=== PATIENT | male | born 1995 | race Caucasian/White ===

== ENCOUNTER 2020-07-26 19:14 | Emergency (ER) | payer SELFPAY ==
--- OUTSIDE RECORDS SUMMARY | 2020-07-26 19:17 | XMS REPORT | Continuity of Care Document ---
:1995 Author Organization [facility] Address [address] [place] [id number] Care Team Providers Name Role Phone Lewis TRISTAN Primary Care Physician Allergies, Adverse Reactions, Alerts No known allergies. Medications No known medications. Problems No problem information available. Procedures No procedure information available. Relevant Diagnostic Tests and/or Laboratory Data No known relevant diagnostic tests and/or laboratory data. Health Concerns Health Concerns may be documented in an alternate section. Chief Complaint and Reason for Visit Chief Complaint Trauma Encounters Encounter Location(s) Arrival/Admit Date Discharge/Depart Date Provider(s) Departed [place] May 15, 2020 May 15, 2020 SAPNA LAFLEUR Emergency Room [facility] 9:58pm 10:06pm Ctr Assessments No Assessments Information Available Functional Status No Functional Status information available Goals Goals may be documented in an alternate section. Immunizations No Immunization Information Available Mental Status No Mental Status Information Available Medical Equipment No Medical Equipment Information available Insurance Providers Guarantor Ricardo Zeng Sr Address [address] [place] [address] Contact Info. Home Phone: CELL Payer Policy Id Coverage Id Subscriber's Subscriber Id Effective E xpiration Name Date Date Self Pay Vaughn Beal Plan of Treatment Future Tests Future scheduled test information is unavailable Pending Tests Pending diagnostic test information is unavailable Future Visits Future appointment information is unavailable Referrals to Other Providers Reason for Referral Start Provider Provider Contact Provider Address Referral Date Information ORALIA TRISTAN Work Phone: [address] [place] [phone] Future Procedures Future procedure information is unavailable Future Medications Future medication information is unavailable Patient Instructions Patient instructions are unavailable Social History Smoking Status Status Date of Observation Smokes tobacco daily (finding) January 15, 2019 11:00am Assigned Sex Male Vital Signs Vital Reading Result Collection Date/Time
[2020-07-26] MEDS ORDERED: BUPIVACAINE 0.5% PF 10 ML VIAL ONE (20:35)
[2020-07-26] MEDS ORDERED: LIDOCAINE 1% MPF 5 ML VIAL ONE (20:35)
--- NOTE | 2020-07-26 20:47 | RAD REPORT ---
EXAM DESCRIPTION: RAD - Hand Right 3 View - 07/26/2020 8:06 pm CLINICAL HISTORY: Pain;Swelling COMPARISON: None FINDINGS: No fracture is identified. There is no dislocation or periosteal reaction noted. No air o r foreign body in the soft tissues. IMPRESSION: No bone or joint abnormality. No air or foreign body in the soft tissues.
[2020-07-26] MEDS ORDERED: SMZ./TMP. 800/160 MG TABLET ONE (20:56)
[2020-07-26] MEDS ORDERED: TETANUS & DIPHTHERIA TOX,ADULT 0.5 ML VIAL ONE (20:57)
[2020-07-26] MEDS ORDERED: HYDROCODONE/APAP 5/325 MG TAB ONE (20:57)
--- NOTE | 2020-07-26 21:06 | ER ---
Nurse's Notes [facility] Name: Vaughn Beal Age: 25 yrs Sex: Male : 1995 Arrival Date: 07/26/2020 Time: 19:23 Bed 7 Private MD: Diagnosis: Felon to right thumb Presentation: 07/26 19:28 Chief complaint: Patient states: pain and swelling on R thumb x 3 days. Denies injury. ca1 Coronavirus screen: Client denies travel out of the [place] in the last 14 days. At this time, the client does not indicate any symptoms associated with coronavirus-19. Ebola Screen: Patient negative for fever greater than or equal to 101.5 degrees Fahrenheit, and additional compatible Ebola Virus Disease symptoms Patient denies exposure to infectious person. Patient denies travel to an Ebola-affected area in the 21 days before illness onset. No symptoms or risks identified at this time. Initial Sepsis Screen: Does the patient meet any 2 criteria? No. Patient's initial sepsis screen is negative. Does the patient have a suspected source of infection? No. Patient's initial sepsis screen is negative. Risk Assessment: Do you want to hurt yourself or someone else? Patient reports no desire to harm self or others. Onset of symptoms was July 26, 2020. 19:28 Method Of Arrival: Ambulatory ca1 19:28 Acuity: CARLENE 4 ca1 Historical: - Allergies: 19:31 No Known Allergies; ca1 - Home Meds: 19:31 None [Active]; ca1 - PMHx: 19:31 None; ca1 - PSHx: 19:31 Femur Surgery; ca1 - Immunization history:: Adult Immunizations not up to date, Flu vaccine is not up to date. - Social history:: Smoking status: Patient reports the use of cigarette tobacco products, smokes two packs cigarettes per day. Screenin:55 Abuse screen: Denies threats or abuse. Nutritional screening: No deficits noted. ea Tuberculosis screening: No symptoms or risk factors identified. Fall Risk None identified. Assessment: 19:54 General: Appears in no apparent distress. Behavior is appropriate for age. Pain: ea Complains of pain in palmar aspect of distal phalanx of right thumb. Neuro: Level of Consciousness is awake, alert, obeys commands, Oriented to person, place, time, situation. Cardiovascular: Patient's skin is warm and dry. Respiratory: Airway is patent Respiratory effort is even, unlabored, Respiratory pattern is regular, symmetrical. Derm: Skin is dry, Skin is normal, Skin temperature is warm. Musculoskeletal: Circulation, motion, and sensation intact. Swelling present in palmar aspect of distal phalanx of right thumb. Vital Signs: 19:28 BP 135 / 96; Pulse 91; Resp 16 S; Temp 97.0(TE); Pulse Ox 97% on R/A; Weight 81.65 kg ca1 (R); Height 5 ft. 5 in. (165.10 cm) (R); Pain 8/10; 21:15 BP 122 / 78; Pulse 80; Resp 18; Temp 98; Pulse Ox 100% on R/A; mg2 19:28 Body Mass Index 29.95 (81.65 kg, 165.10 cm) ca1 ED Course: 19:23 Patient arrived in ED. am2 19:27 Yesy Alas FNP-C is PHCP. snw 19:27 Kun Rojas MD is Attending Physician. snw 19:30 Triage completed. ca1 19:31 Arm band placed on right wrist. ca1 19:53 Nadja Herman, DILCIA is Primary Nurse. ea 19:54 Yesy Alas FNP-C is PHCP. snw 19:54 Kun Rojas MD is Attending Physician. snw 19:55 Patient has correct armband on for positive identification. Bed in low position. Call ea light in reach. 20:04 Hand Right 3 View XRAY In Process Unspecified. EDMS 20:27 Patient did not have IV access during this emergency room visit. mg2 21:05 Jimmie Paulino MD is Referral Physician. snw 21:08 Assist provider with I \T\ D: of an abscess on right big thgumb Set up I\T\D tray. mg 2 Performed by Yesy ALEX Wound packed. 4X4s, Dressing with Neosporin and 4X4s, Patient tolerated well. Administered Medications: 20:33 Drug: Marcaine (0.5 %) 1 vials {Note: administered by the provider.} Volume: 10 ml; mg2 Route: Infiltration; 20:34 Drug: Lidocaine (1 %) 5 mg {Note: administered by the provider.} Route: Infiltration; mg2 21:04 Drug: Tetanus-Diphtheria Toxoid Adult 0.5 ml {Licensed Practical Nurse Clinic Nurse: [employer]. Exp: ea 11/28/2021. Lot #: [id number]. } Route: IM; Site: right deltoid; 21:07 Follow up: Response: No adverse reaction; Medication administered at discharge. mg2 21:04 Drug: [place] 5 mg-325 mg 1 tabs Route: PO; ea 21:07 Follow up: Response: No adverse reaction; Medication administered at discharge. mg2 21:04 Drug: Bactrim (160 mg-800 mg (DS) 1 tablet Route: PO; ea 21:07 Follow up: Response: No adverse reaction; Medication administered at discharge. mg2 Outcome: 21:05 Discharge ordered by MD. snw 21:14 Condition: stable ea 21:15 Discharged to home ambulatory. mg2 21:15 Discharge instructions given to patient, Instructed on discharge instructions, follow up and referral plans. medication usage, Demonstrated understanding of instructions, follow-up care, medications, Prescriptions given X 2. 21:15 Patient left the ED. mg2 Signatures: Dispatcher [employer] EDMS Yesy Alas, RD-C CHARGE HAND-CsnErika Scherer Elena, RN Jayson Carrizales ea, RN RN mg2 Silvia Ernandez RN RN ca1
--- NOTE | 2020-07-26 21:07 | EDPHYS ---
Physician Documentation [facility] Name: Vaughn Beal Age: 25 yrs Sex: Male : 1995 Arrival Date: 07/26/2020 Time: 19:23 Bed 7 Private MD: ED Physician Kun Rojas HPI: 07/26 20:39 This 25 yrs old Male presents to ER via Ambulatory with complaints of right snw thumb swelling. 20:39 The patient or guardian reports pain, swelling. The complaints affect the right thumb. snw Context: resulted from an unknown cause. Onset: The symptoms/episode began/occurred suddenly, 4 day(s) ago, and became persistent. Associated signs and symptoms: The patient has no apparent associated signs or symptoms. The patient has experienced a previous episode. The patient has not recently seen a physician. Historical: - Allergies: 19:31 No Known Allergies; ca1 - Home Meds: 19:31 None [Active]; ca1 - PMHx: 19:31 None; ca1 - PSHx: 19:31 Femur Surgery; ca1 - Immunization history:: Adult Immunizations not up to date, Flu vaccine is not up to date. - Social history:: Smoking status: Patient reports the use of cigarette tobacco products, smokes two packs cigarettes per day. ROS: 20:37 Constitutional: Negative for fever, chills, and weight loss, Eyes: Negative for injury, snw pain, redness, and discharge, ENT: Negative for injury, pain, and discharge, Neck: Negative for injury, pain, and swelling, Cardiovascular: Negative for chest pain, palpitations, and edema, Respiratory: Negative for shortness of breath, cough, wheezing, and pleuritic chest pain, Abdomen/GI: Negative for abdominal pain, nausea, vomiting, diarrhea, and constipation, Back: Negative for injury and pain, : Negative for injury, bleeding, discharge, and swelling, Skin: Negative for injury, rash, and discoloration, Neuro: Negative for headache, weakness, numbness, tingling, and seizure, Psych: Negative for depression, anxiety, suicide ideation, homicidal ideation, and hallucinations. 20:37 MS/extremity: Positive for felon to distal right thumb. Exam: 20:37 Constitutional: This is a well developed, well nourished patient who is awake, alert, snw and in no acute distress. Head/Face: Normocephalic, atraumatic. Eyes: Pupils equal round and reactive to light, extra-ocular motions intact. Lids and lashes normal. Conjunctiva and sclera are non-icteric and not injected. Cornea within normal limits. Periorbital areas with no swelling, redness, or edema. ENT: Nares patent. No nasal discharge, no septal abnormalities noted. Tympanic membranes are normal and external auditory canals are clear. Oropharynx with no redness, swelling, or masses, exudates, or evidence of obstruction, uvula midline. Mucous membranes moist. Neck: Trachea midline, no thyromegaly or masses palpated, and no cervical lymphadenopathy. Supple, full range of motion without nuchal rigidity, or vertebral point tenderness. No Meningismus. Chest/axilla: Normal chest wall appearance and motion. Nontender with no deformity. No lesions are appreciated. Cardiovascular: Regular rate and rhythm with a normal S1 and S2. No gallops, murmurs, or rubs. Normal PMI, no JVD. No pulse deficits. Respiratory: Lungs have equal breath sounds bilaterally, clear to auscultation and percussion. No rales, rhonchi or wheezes noted. No increased work of breathing, no retractions or nasal flaring. Abdomen/GI: Soft, non-tender, with normal bowel sounds. No distension or tympany. No guarding or rebound. No evidence of tenderness throughout. Back: No spinal tenderness. No costovertebral tenderness. Full range of motion. Skin: Warm, dry with normal turgor. Normal color with no rashes, no lesions, and no evidence of cellulitis. Neuro: Awake and alert, GCS 15, oriented to person, place, time, and situation. Cranial nerves II-XII grossly intact. Motor strength 5/5 in all extremities. Sensory grossly intact. Cerebellar exam normal. Normal gait. Psych: Awake, alert, with orientation to person, place and time. Behavior, mood, and affect are within normal limits. 20:37 Musculoskeletal/extremity: Extremities: grossly normal except: swelling, tenderness, fluctuance to pad of right thumb, Circulation is intact in all extremities. Sensation intact. Vital Signs: 19:28 BP 135 / 96; Pulse 91; Resp 16 S; Temp 97.0(TE); Pulse Ox 97% on R/A; Weight 81.65 kg ca1 (R); Height 5 ft. 5 in. (165.10 cm) (R); Pain 8/10; 21:15 BP 122 / 78; Pulse 80; Resp 18; Temp 98; Pulse Ox 100% on R/A; mg2 19:28 Body Mass Index 29.95 (81.65 kg, 165.10 cm) ca1 Procedures: 20:36 Nerve block: (digital) of right thumb Medication: Lidocaine 1% without epinephrine snw Marcaine 0.5%, Amount: 7 mls were injected, Effect: the patient has resolution of the pain, the patient's symptoms are improved, moderately, Set up for procedure. Performed by Yesy ALEX Patient tolerated well. MDM: 19:58 Patient medically screened. snw 21:06 Data reviewed: vital signs, nurses notes. Data interpreted: Pulse oximetry: on room air snw is 97 %. Interpretation: normal. Counseling: I had a detailed discussion with the patient and/or guardian regarding: the historical points, exam findings, and any diagnostic results supporting the discharge/admit diagnosis, the presence of at least one elevated blood pressure reading (>120/80) during this emergency department visit, the need for outpatient follow up, to return to the emergency department if symptoms worsen or persist or if there are any questions or concerns that arise at home, smoking cessation. Special discussion: I have referred the patient to see his PCP for further evaluation of high blood pressure. Based on the history and exam findings, there is no indication for further emergent testing or inpatient evaluation. I discussed with the patient/guardian the need to see the hand specialist for further evaluation of the symptoms. I discussed with the patient/guardian the need to see the primary care provider for further evaluation of the symptoms. 07/26 19:27 Order name: Hand Right 3 View XRAY; Complete Time: 21:05 snw 07/26 21:05 Order name: Wound dressing; Complete Time: 21:07 snw Administered Medications: 20:33 Drug: Marcaine (0.5 %) 1 vials {Note: administered by the provider.} Volume: 10 ml; mg2 Route: Infiltration; 20:34 Drug: Lidocaine (1 %) 5 mg {Note: administered by the provider.} Route: Infiltration; mg2 21:04 Drug: Tetanus-Diphtheria Toxoid Adult 0.5 ml {Co Founder And Chairman: [employer]. Exp: ea 11/28/2021. Lot #: [id number]. } Route: IM; Site: right deltoid; 21:07 Follow up: Response: No adverse reaction; Medication administered at discharge. mg2 21:04 Drug: [place] 5 mg-325 mg 1 tabs Route: PO; ea 21:07 Follow up: Response: No adverse reaction; Medication administered at discharge. mg2 21:04 Drug: Bactrim (160 mg-800 mg (DS) 1 tablet Route: PO; ea 21:07 Follow up: Response: No adverse reaction; Medication administered at discharge. mg2 Disposition: 23:33 Co-signature as Attending Physician, Kun Rojas MD. pkl Disposition: 07/26/20 21:05 Discharged to Home. Impression: Felon to right thumb. - Condition is Stable. - Discharge Instructions: VIS, Tetanus, Diphtheria (Td) - CDC, Felon. - Prescriptions for Mobic 7.5 mg Oral Tablet - take 1 tablet by ORAL route once daily take with food; 20 tablet. Doxycycline Hyclate 100 mg Oral Tablet - take 1 tablet by ORAL route every 12 hours; 14 tablet. - Work release form, Medication Reconciliation Form, Thank You Letter, Antibiotic Education, Prescription Opioid Use form. - Follow up: Emergency Department; When: As needed; Reason: Worsening of condition. Follow up: Jimmie Paulino; When: 2 - 3 days; Reason: Recheck today's complaints, Continuance of care. Signatures: Dispatcher [employer] EDMS Kun Rojas MD MD pkl Waters, Shelly, RAW STOCK DYEING MACHINE TENDER-C RAW STOCK DYEING MACHINE TENDER-Madelainew Nadja Herman RN RN ea Gardose, Michele, RN RN mg2 Silvia Ernandez RN RN ca1 Corrections: (The following items were deleted from the chart) 21:15 21:05 07/26/2020 21:05 Discharged to Home. Impression: Felon to right thumb. Condition mg2 is Stable. Discharge Instructions: Felon, VIS, Tetanus, Diphtheria (Td) - CDC. Prescriptions for Mobic 7.5 mg Oral Tablet - take 1 tablet by ORAL route once daily take with food; 20 tablet. and Forms are Work release form, Medication Reconciliation Form, Thank You Letter, Antibiotic Education, Prescription Opioid Use. Follow up: Emergency Department; When: As needed; Reason: Worsening of condition. Follow up: Jimmie Paulino; When: 2 - 3 days; Reason: Recheck today's complaints, Continuance of care. snw
[2020-07-27 05:12] VITALS: BP 122/78; TEMP 98; O2SAT 100
== END 2020-07-26 21:15 | disposition home or self-care (01) ==
LOC: ER 19:14
PROC: 0J9J0ZZ Drainage of Right Hand Subcutaneous Tissue and Fascia, Open Approach (ICD-10-PCS; principal; 2020-07-26)
DX: L03.011 Cellulitis of right finger (principal); F17.210 Nicotine dependence, cigarettes, uncomplicated
CPT/HCPCS: 64450; 90471; 90714; 99284

== ENCOUNTER 2023-04-13 09:41 | Inpatient (IN) | payer SELFPAY ==
--- OUTSIDE RECORDS SUMMARY | 2023-04-13 09:43 | XMS REPORT | Continuity of Care Document ---
:1995 Author Organization [facility] Address [address] [place] [address] [address] [place] [address] Care Team Providers Name Role Phone CHICA MIX Attending Clinician Unavailable ANNA Attending Clinician Unavailable MATT Attending Clinician Unavailable SAPNA LOUIS Attending Clinician Unavailable GUDELIA BOLANOS Attending Clinician Unavailable BERNY HOLDEN Attending Clinician Unavailable KAVYA LAURA Attending Clinician Unavailable ANNA Admitting Clinician Unavailable MATT Admitting Clinician Unavailable Problems This patient has no known problems. Allergies, Adverse Reactions, Alerts This patient has no known allergies or adverse reactions. Medications This patient has no known medications. Procedures This patient has no known procedures. Encounters Start End Encounter Admission Attending Care Care Encounter Source Date/Time Date/Time Type Type Clinicians Facility Department ID 2023-03-22 2023-03-22 Emergency ER SKYLER MIX [facility] [id number] [place] 09:27:00 11:10:00 CHICA [id number] [facility] 2022-04-20 2022-04-20 Outpatient BELLA M[facility]RISON [facility] [id number] [place] 00:00:00 00:00:00 [facility] 2022-03-31 Outpatient JUAN CARLOS_NICKO MORRISON [facility] [id number] [place] 12:43:00 12:43:00 _ANN [facility]15 [facility] 2020-05-15 2020-05-15 Emergency ER HERIBERTO, [facility] [id number] [place] 21:58:00 22:06:00 SAPNA -[id number] [facility] 2019-01-15 2019-01-15 Emergency ER LUIS MIGUEL, [facility] [id number] [place] 10:52:00 12:41:00 GUDELIA -[id number] [facility] 2017-03-03 2017-03-03 Emergency ER ADINA, [facility] [id number] [place] 03:43:00 07:39:00 BERNY -[id number] [facility] 2014-11-25 2014-11-25 Emergency ER VALENTÍN, [facility] [id number] [place] 20:47:00 21:40:00 KAVYA -[id number] [facility] Results This patient has no known results.
[2023-04-13] MEDS ORDERED: ACETAMINOPHEN 325 MG TABLET ONE (10:19)
--- NOTE | 2023-04-13 10:25 | RAD REPORT ---
EXAM DESCRIPTION: RAD - Chest Single View - 04/13/2023 10:19 am CLINICAL HISTORY: CHEST PAIN COMPARISON: No comparisons FINDINGS: Lines: None. Lungs: No evidence of edema or pneumonia. Pleural: No significant pleural effusions or pneumothorax. Cardiac: The heart size is within normal limits. Mediastinum: Within normal limits. Bones: No acute fractures. Other: None IMPRESSION: No acute cardiopulmonary disease.
[2023-04-13 10:39] LABS: Potassium 4.2 mEq/L (3.5-5.1)
[2023-04-13 10:41] LABS: Troponin High Sensitivity 470.3 pg/mL (<58.9)
[2023-04-13 11:17] LABS: Absolute Lymphocytes (CBC) 1.1 K/uL (0.7-4.9); Hematocrit 45.9 % (39.6-49.0); Lymphocytes % 12.8 % (15.3-44.8); MCV 88.9 fL (80-100); MPV 8.7 fL (7.6-11.3); RBC Red Blood Cell Count 5.16 M/uL (4.33-5.43)
[2023-04-13 11:26] LABS: Barbiturates NEGATIVE (NEGATIVE); Benzodiazepines NEGATIVE (NEGATIVE); Cocaine NEGATIVE (NEGATIVE); METHAMPHETAM NEGATIVE (NEGATIVE); Methadone NEGATIVE (NEGATIVE); Opiates NEGATIVE (NEGATIVE); Phencyclidine NEGATIVE (NEGATIVE); THC Cannibis NEGATIVE (NEGATIVE)
--- NOTE | 2023-04-13 12:21 | RAD REPORT ---
EXAM DESCRIPTION: CT - Chest For Pe Angio - 04/13/2023 12:14 pm CLINICAL HISTORY: CHEST PAIN COMPARISON: No comparisons TECHNIQUE: Dynamically enhanced axial 3 mm thick images of the chest were obtained during administra tion of <100> mL Isovue 370 IV contrast. Coronal and oblique reconstruction images were generated and reviewed. Exam utilizes a protocol for optimal evaluation of pulmonary arterial tree. Maximum intensity projections 3D imaging was utilized All CT scans are performed using dose optimization technique as appropriate and may include automated exposure control or mA/KV adjustment according to patient size. FINDINGS: Chest Wall: No suspicious thyroid nodules or pathologic lymphadenopathy. Lungs: Mosaic lung attenuation. No edema or consolidation. Pleura: No significant effusions or pneumothorax. Mediastinum/antonio: No pathologic lymphadenopathy. Pulmonary arteries/Aorta: No filling defect identified. No aortic aneurysm. Heart: No significant pericardial effusion. Normal heart size. Upper abdomen: No acute abnormality. Bones: No acute abnormality. IMPRESSION: Negative for pulmonary embolism. Mosaic lung attenuation which could be secondary to hyp oventilation or small airways disease.
--- NOTE | 2023-04-13 12:39 | ER ---
Nurse's Notes [facility] Name: Vaughn Beal Age: 28 yrs Sex: Male : 1995 Arrival Date: 04/13/2023 Time: 09:41 Bed 19 Private MD: Diagnosis: Chest pain, unspecified;Elevated Troponin;Tachycardia, unspecified Presentation: 04/13 09:48 Chief complaint: Midsternal chest pressure that radiates to left upper chest and back hb upon waking today. Pain is worse with movement and deep breathing. Coronavirus screen: At this time, the client does not indicate any symptoms associated with coronavirus-19. Ebola Screen: No symptoms or risks identified at this time. Initial Sepsis Screen: Does the patient meet any 2 criteria? No. Patient's initial sepsis screen is negative. Does the patient have a suspected source of infection? No. Patient's initial sepsis screen is negative. Risk Assessment: Do you want to hurt yourself or someone else? Patient reports no desire to harm self or others. Onset of symptoms was April 13, 2023. 09:48 Method Of Arrival: Ambulatory hb 09:48 Acuity: CARLENE 3 hb Historical: - Allergies: 09:50 No Known Allergies; hb 09:50 No Known Allergies; eh3 - Home Meds: 09:50 None [Active]; hb - PMHx: 09:50 None; hb - PSHx: 09:50 Femur - Left; hb - Immunization history:: Adult Immunizations up to date, Adult Immunizations unknown. - Social history:: Smoking status: Patient reports the use of cigarette tobacco products, Smoking status: Reported history of juuling and/or vaping. Screenin:50 [facility] ED Fall Risk Assessment (Adult) Score/Fall Risk Level 0 - 2 = Low Risk. Abuse eh3 screen: Denies threats or abuse. Denies injuries from another. Nutritional screening: No deficits noted. Tuberculosis screening: No symptoms or risk factors identified. Assessment: 09:49 General: Appears in no apparent distress. uncomfortable, Behavior is calm, cooperative, eh3 appropriate for age. Pain: Complains of pain in chest. Neuro: Level of Consciousness is awake, alert, obeys commands, Oriented to person, place, time, situation. Cardiovascular: Capillary refill < 3 seconds Patient's skin is warm and dry. Respiratory: Airway is patent Respiratory effort is even, unlabored, Respiratory pattern is regular, symmetrical. GI: Abdomen is round non-distended. Derm: Skin is healthy with good turgor, Skin is moist, Skin is pink. Musculoskeletal: Circulation, motion, and sensation intact. 09:49 Pain: Pain does not radiate. Pain began suddenly, 2 hours ago. eh3 10:00 Reassessment: Patient appears in no apparent distress at this time. Patient and/or 3 family updated on plan of care and expected duration. Pain level reassessed. Patient is alert, oriented x 3, equal unlabored respirations, skin warm/dry/pink. 11:00 Reassessment: Patient appears in no apparent distress at this time. Patient and/or 3 family updated on plan of care and expected duration. Pain level reassessed. Patient is alert, oriented x 3, equal unlabored respirations, skin warm/dry/pink. 12:00 Reassessment: Patient appears in no apparent distress at this time. Patient and/or 3 family updated on plan of care and expected duration. Pain level reassessed. Patient is alert, oriented x 3, equal unlabored respirations, skin warm/dry/pink. 13:00 Reassessment: Patient appears in no apparent distress at this time. Patient and/or 3 family updated on plan of care and expected duration. Pain level reassessed. Patient is alert, oriented x 3, equal unlabored respirations, skin warm/dry/pink. 14:00 Reassessment: Patient appears in no apparent distress at this time. Patient and/or 3 family updated on plan of care and expected duration. Pain level reassessed. Patient is alert, oriented x 3, equal unlabored respirations, skin warm/dry/pink. 15:00 Reassessment: Patient appears in no apparent distress at this time. Patient and/or 3 family updated on plan of care and expected duration. Pain level reassessed. Patient is alert, oriented x 3, equal unlabored respirations, skin warm/dry/pink. 16:00 Reassessment: Patient appears in no apparent distress at this time. Patient and/or 3 family updated on plan of care and expected duration. Pain level reassessed. Patient is alert, oriented x 3, equal unlabored respirations, skin warm/dry/pink. 17:00 Reassessment: Patient appears in no apparent distress at this time. Patient and/or eh3 family updated on plan of care and expected duration. Pain level reassessed. Patient is alert, oriented x 3, equal unlabored respirations, skin warm/dry/pink. 18:00 Reassessment: Patient appears in no apparent distress at this time. Patient and/or eh3 family updated on plan of care and expected duration. Pain level reassessed. Patient is alert, oriented x 3, equal unlabored respirations, skin warm/dry/pink. 19:00 Reassessment: Patient appears in no apparent distress at this time. Patient and/or eh3 family updated on plan of care and expected duration. Pain level reassessed. Patient is alert, oriented x 3, equal unlabored respirations, skin warm/dry/pink. Vital Signs: 09:48 BP 148 / 103; Pulse 117; Resp 14; Pulse Ox 100% on R/A; Weight 81.65 kg; Height 5 ft. 6 hb in. ; Pain 5/10; 09:49 Temp 100.2(O); eh3 10:00 BP 140 / 89; Pulse 108; Resp 17; Pulse Ox 98% on R/A; 3 10:30 BP 133 / 103; Pulse 103; Resp 23; Pulse Ox 96% on R/A; 3 10:45 Temp 99.7(O); eh3 11:30 BP 114 / 69; Pulse 94; Resp 20; Pulse Ox 95% on R/A; 3 12:00 BP 115 / 77; Pulse 95; Resp 18; Pulse Ox 95% on R/A; 3 13:00 BP 136 / 90; Pulse 88; Resp 20; Pulse Ox 97% on R/A; eh3 14:00 BP 123 / 86; Pulse 83; Resp 20; Pulse Ox 95% on R/A; eh3 15:00 BP 134 / 95; Pulse 92; Resp 20; Pulse Ox 96% on R/A; 3 16:00 BP 134 / 92; Pulse 79; Resp 20; Pulse Ox 95% on R/A; eh3 17:00 BP 126 / 93; Pulse 89; Resp 18; Pulse Ox 99% on R/A; eh3 18:00 BP 122 / 94; Pulse 98; Resp 18; Pulse Ox 100% on R/A; 3 19:00 BP 133 / 94; Pulse 102; Resp 18; Pulse Ox 98% on R/A; eh3 20:00 BP 121 / 81; Pulse 88; Resp 18; Pulse Ox 98% on R/A; eh3 09:48 Body Mass Index 29.05 (81.65 kg, 167.64 cm) hb 09:48 Pain Scale: Adult hb ED Course: 09:42 Patient arrived in ED. ms3 09:42 Harris Singh DO is Attending Physician. ms3 09:44 Jayne Forrester, DILCIA is Primary Nurse. eh3 09:49 Patient maintains SpO2 saturation greater than 95% on room air. eh3 09:50 Triage completed. hb 09:50 Arm band placed on. hb 09:50 Patient has correct armband on for positive identification. Bed in low position. Call 3 light in reach. Client placed on continuous cardiac and pulse oximetry monitoring. NIBP monitoring applied. 10:12 Flu Sent. aw1 10:12 SARS-COV-2 RT PCR Sent. aw1 10:15 Inserted saline lock: 20 gauge in left antecubital area, using aseptic technique. Blood 3 collected. 10:21 XRAY Chest (1 view) In Process Unspecified. EDMS 12:16 CT Chest For PE Angio In Process Unspecified. EDMS 12:20 First set of blood cultures drawn by me, Second set of blood cultures drawn by me. aw1 12:37 Blood Culture Adult (2) Sent. aw1 12:39 Gordon Vincent is Hospitalizing Provider. ms3 20:00 Provided Education on: N/A. eh3 20:00 No provider procedures requiring assistance completed. Patient admitted, IV remains in [address] Administered Medications: 10:14 Drug: Acetaminophen PO 650 mg Route: PO; eh3 10:45 Follow up: Response: No adverse reaction; Temperature is decreased eh3 12:45 Drug: Aspirin PO Chewable Tablet 324 mg Route: PO; eh3 13:54 Follow up: Response: No adverse reaction 3 Medication: 20:00 VIS not applicable for this client. eh3 Outcome: 12:39 Decision to Hospitalize by Provider. ms3 20:00 Admitted to Med/surg accompanied by nurse, via wheelchair, room 221, Report called to [facility] Rip 20:00 Condition: stable 20:00 Instructed on the need for admit. 20:19 Patient left the ED. 3 Signatures: Dispatcher [employer] EDMS Jory Wilson, DILCIA RN Harris Singh, DO ms3 Jayne Forrester, DILCIA RN eh3 Linda Sy aw1 Corrections: (The following items were deleted from the chart) 09:50 09:48 BP 148 / 103; Pulse 117bpm; Resp 14bpm; Pulse Ox 100% RA; Temp 98.3F; 81.65 kg; hb Height 5 ft. 6 in.; BMI: 29.0; Pain 5/10, Adult; hb
--- NOTE | 2023-04-13 12:39 | EDPHYS ---
Physician Documentation [facility] Name: Vaughn Beal Age: 28 yrs Sex: Male : 1995 Arrival Date: 04/13/2023 Time: 09:41 Bed 19 Private MD: ED Physician Harris Singh HPI: 04/13 09:57 This 28 yrs old Male presents to ER via Ambulatory with complaints of Chest Pain. ms3 09:57 28-year-old male with no past medical history presents for chest pain that began at 7 ms3 PM. Patient states the pain is substernal radiating to the left upper chest. Patient states the pain is a 5/10 described as pressure. Patient denies alleviating factors. Patient states the pain is worse with movement. Patient denies nausea, vomiting, shortness of breath, sweating. Historical: - Allergies: 09:50 No Known Allergies; hb 09:50 No Known Allergies; eh3 - Home Meds: 09:50 None [Active]; hb - PMHx: 09:50 None; hb - PSHx: 09:50 Femur - Left; hb - Immunization history:: Adult Immunizations up to date, Adult Immunizations unknown. - Social history:: Smoking status: Patient reports the use of cigarette tobacco products, Smoking status: Reported history of juuling and/or vaping. ROS: 09:57 Constitutional: Negative for fever, and chills. Neck: Negative for injury, pain, and ms3 swelling. 09:57 Respiratory: Negative for shortness of breath, cough, wheezing, and pleuritic chest pain, Abdomen/GI: Negative for abdominal pain, nausea, vomiting, diarrhea, and constipation, MS/Extremity: Negative for injury and deformity, Skin: Negative for injury, rash, and discoloration. 09:57 Cardiovascular: Positive for chest pain. 09:57 All other systems are negative. Exam: 09:57 Constitutional: This is a well developed, well nourished patient who is awake, alert, ms3 and in no acute distress. Head/Face: Normocephalic, atraumatic. Neck: Trachea midline, no cervical lymphadenopathy. Supple, full range of motion without nuchal rigidity, or vertebral point tenderness. No Meningismus. Chest/axilla: Normal chest wall appearance and motion. Nontender with no deformity. 09:57 Abdomen/GI: Soft, non-tender, with normal bowel sounds. No distension or tympany. No guarding or rebound. No evidence of tenderness throughout. Skin: Warm, dry with normal turgor. Normal color with no rashes, no lesions, and no evidence of cellulitis. MS/ Extremity: Pulses equal, no cyanosis. Neurovascular intact. Full, normal range of motion. 09:57 Cardiovascular: Rate: tachycardic, Rhythm: regular, Pulses: no pulse deficits are appreciated, Heart sounds: normal, normal S1and S2. 11:07 ECG was reviewed by the Attending Physician. ms3 Vital Signs: 09:48 BP 148 / 103; Pulse 117; Resp 14; Pulse Ox 100% on R/A; Weight 81.65 kg; Height 5 ft. 6 hb in. ; Pain 5/10; 09:49 Temp 100.2(O); eh3 10:00 BP 140 / 89; Pulse 108; Resp 17; Pulse Ox 98% on R/A; eh3 10:30 BP 133 / 103; Pulse 103; Resp 23; Pulse Ox 96% on R/A; eh3 10:45 Temp 99.7(O); eh3 11:30 BP 114 / 69; Pulse 94; Resp 20; Pulse Ox 95% on R/A; eh3 12:00 BP 115 / 77; Pulse 95; Resp 18; Pulse Ox 95% on R/A; eh3 13:00 BP 136 / 90; Pulse 88; Resp 20; Pulse Ox 97% on R/A; eh3 14:00 BP 123 / 86; Pulse 83; Resp 20; Pulse Ox 95% on R/A; eh3 15:00 BP 134 / 95; Pulse 92; Resp 20; Pulse Ox 96% on R/A; eh3 16:00 BP 134 / 92; Pulse 79; Resp 20; Pulse Ox 95% on R/A; eh3 17:00 BP 126 / 93; Pulse 89; Resp 18; Pulse Ox 99% on R/A; eh3 18:00 BP 122 / 94; Pulse 98; Resp 18; Pulse Ox 100% on R/A; eh3 19:00 BP 133 / 94; Pulse 102; Resp 18; Pulse Ox 98% on R/A; eh3 20:00 BP 121 / 81; Pulse 88; Resp 18; Pulse Ox 98% on R/A; eh3 09:48 Body Mass Index 29.05 (81.65 kg, 167.64 cm) hb 09:48 Pain Scale: Adult hb MDM: 09:52 Patient medically screened. ms3 09:57 Differential diagnosis: abnormal EKG, acute myocardial infarction, acute pericarditis, ms3 myocarditis. 16:48 Data reviewed: vital signs, nurses notes, lab test result(s), EKG, radiologic studies, ms3 and as a result, I will admit patient. Consideration of Admission/Observation Patient was admitted/placed on observation. I considered the following discharge prescriptions or medication management in the emergency department Medications were administered in the Emergency Department. See MAR. Independent interpretation of the following test(s) in the Emergency Department EKG: See my EKG interpretation above air sampling and monitoring: rate is 98 beats/min, Rhythm is normal sinus rhythm, regular, with no ectopy, Interpretation: normal rate, normal rhythm. Counseling: I had a detailed discussion with the patient and/or guardian regarding: the historical points, exam findings, and any diagnostic results supporting the discharge/admit diagnosis, lab results, radiology results, the need for further work-up and treatment in the hospital. ED course: Discussed necessity for admission with patient. Patient understands and agrees with plan. Case discussed with Dr. Vincent and he excepted patient for inpatient admission.. 04/13 09:52 Order name: Basic Metabolic Panel; Complete Time: 10:42 04/13 09:52 Order name: CBC with Diff; Complete Time: 11:27 04/13 09:52 Order name: Magnesium; Complete Time: 10:42 04/13 09:52 Order name: Troponin HS; Complete Time: 10:42 04/13 10:05 Order name: SARS-COV-2 RT PCR; Complete Time: 10:58 04/13 10:05 Order name: Flu; Complete Time: 10:42 04/13 10:42 Order name: UDS; Complete Time: 11:27 3 04/13 11:53 Order name: Blood Culture Adult (2) 3 04/13 14:39 Order name: Miscellaneous Test Lab; Complete Time: 14:52 EDNY 04/13 14:53 Order name: Troponin High Sensitivity; Complete Time: 16:34 04/13 18:56 Order name: Troponin High Sensitivity EDMS 04/13 18:56 Order name: Lipid Profile EDMS 04/13 09:52 Order name: XRAY Chest (1 view); Complete Time: 10:34 ms3 04/13 11:07 Order name: Echo w/ Doppler ms3 04/13 11:47 Order name: CT Chest For PE Angio; Complete Time: 12:34 ms3 04/13 09:52 Order name: EKG; Complete Time: 09:53 ms3 04/13 15:20 Order name: Diet Regular; Complete Time: 15:21 eh3 04/13 15:54 Order name: EKG; Complete Time: 15:54 ms3 04/13 09:52 Order name: Cardiac monitoring; Complete Time: 09:54 ms3 04/13 09:52 Order name: EKG - Nurse/Tech; Complete Time: 10:04 ms3 04/13 09:52 Order name: IV Saline Lock; Complete Time: 10:04 ms3 04/13 09:52 Order name: Labs collected and sent; Complete Time: 10:04 ms3 04/13 09:52 Order name: O2 Per Protocol; Complete Time: 09:54 ms3 04/13 09:52 Order name: O2 Sat Monitoring; Complete Time: 09:54 ms3 EC:07 Rate is 105 beats/min. Rhythm is regular. QRS [place] is Normal. MA interval is normal. ms3 QRS interval is normal. Clinical impression: Sinus tachycardia. Interpreted by me. Reviewed by me. Administered Medications: 10:14 Drug: Acetaminophen PO 650 mg Route: PO; 3 10:45 Follow up: Response: No adverse reaction; Temperature is decreased 3 12:45 Drug: Aspirin PO Chewable Tablet 324 mg Route: PO; 3 13:54 Follow up: Response: No adverse reaction 3 Disposition Summary: 04/13/23 12:39 Hospitalization Ordered Hospitalization Status: Inpatient Admission ms3 Provider: Gordon Vincent ms3 Location: Telemetry/MedSurg (Inpatient) ms3 Condition: Stable ms3 Problem: new ms3 Symptoms: are unchanged ms3 Bed/Room Type: Standard ms3 Room Assignment: 221(04/13/23 17:20) dw Diagnosis - Chest pain, unspecified ms3 - Elevated Troponin ms3 - Tachycardia, unspecified ms3 Forms: - Medication Reconciliation Form ms3 - SBAR form ms3 Signatures: Dispatcher [employer] EDMS Helen Mina, DILCIA RN dw Jory Wilson, DILCIA RN Harris Lynch, DO ms3 Jayne Forrester, DILCIA RN eh3 Corrections: (The following items were deleted from the chart) 14:39 09:53 D-[id number] ordered. EDMS EDMS 17:20 12:39 ms3 dw
[2023-04-13] MEDS ORDERED: ASPIRIN 81 MG CHEWABLE TABLET ONE (12:55)
--- NOTE | 2023-04-13 15:45 | P.HP ---
Certification for Inpatient Patient admitted to: Inpatient With expected LOS: >2 Midnights Practitioner: I am a practitioner with admitting privileges, knowledge of patient current condition, hospital course, and medical plan of care. Services: Services provided to patient in accordance with Admission requirements found in Title 42 Section 412.3 of the Code of Federal Regulations Patient History Date of Service: 04/13/23 Reason for admission: Chest pain History of Present Illness: 28-year-old gentleman with no known medical history, a smoker presented to the emergency department with a complaint of sudden onset midsternal chest pain that woke him up from sleep. Patient rated chest pain maximum intensity of 6-8/10, no known relieving or aggravating factors, nonradiating, not associated with palpitation or nausea or diaphoresis. His initial troponin in the ED elevated, EKG demonstrated sinus tachycardia, no significant ischemic changes. CTA thorax done was negative for pulmonary embolism, checks x-ray unremarkable. Risk factors for CAD include smoking. Patient is hospitalized for further management of NSTEMI. - Past Medical/Surgical History Diabetic: No -: None -: Right femoral surgery for distal femoral fracture. - Social History Smoking Status: Current every day smoker Alcohol use: Yes CD- Drugs: No Place of Residence: Home Review of Systems Other: He denied any cough or shortness of breath or abdominal pain or nausea or vomiting. Except as documented, all other systems reviewed and negative. Physical Examination - Physical Exam General: Alert, In no apparent distress, Oriented x3 HEENT: Normocephalic, PERRLA, Mucous membr. moist/pink, EOMI, Sclerae nonicteric Neck: Supple, JVD not distended Respiratory: Clear to auscultation bilaterally, Normal air movement Cardiovascular: No edema, Regular rate/rhythm, Normal S1 S2, No murmurs Capillary refill: <2 Seconds Gastrointestinal: Normal bowel sounds, Soft and benign, Non-distended, No ascites Musculoskeletal: No swelling, No tenderness Integumentary: No rashes, No erythema, No cyanosis Neurological: Normal speech, Normal strength at 5/5 x4 extr, Cranial nerves 3-12 intact Lymphatics: No axilla or inguinal lymphadenopathy - Studies Laboratory Data (last 24 hrs) 04/13/23 10:02: WBC 8.80, Hgb 16.0, Hct 45.9, Plt Count 179 04/13/23 10:02: Sodium 135 L, Potassium 4.2, BUN 9, Creatinine 1.06, Glucose 129 H, Magnesium 2.0 Microbiology Data (last 24 hrs): 04/13/23 10:02 Nasopharnyx Influenza Type A Antigen Screen - Final 04/13/23 10:02 Nasopharnyx Influenza Type B Antigen Screen - Final Assessment and Plan - Problems (Diagnosis) (1) NSTEMI (non-ST elevated myocardial infarction) Current Visit: Yes Status: Acute (2) Tobacco use disorder Current Visit: Yes Status: Acute - Plan Admit patient to the medical floor Telemetry Start aspirin, metoprolol. Full dose Lovenox Analgesics-IV morphine as needed, NTG as needed. Trend troponin Cardiology consult Obtain echocardiogram. Check lipid profile. - Advance Directives Does patient have a Living Will: No Does patient have a Durable POA for Healthcare: No
[2023-04-13] MEDS ORDERED: ENOXAPARIN 80 MG/0.8 ML SQ ONE (15:57)
[2023-04-13] MEDS ORDERED: NITROGLYCERIN 0.4 MG/TAB SL PRN (17:14)
[2023-04-13] MEDS ORDERED: MORPHINE 2 MG/ML SYR IV PRN (17:42)
[2023-04-13 19:54] VITALS: BMI 30.7
[2023-04-13] MEDS ORDERED: ENOXAPARIN 80 MG/0.8 ML SQ SCH (21:00)
[2023-04-13] MEDS ORDERED: METOPROLOL TAR 25 MG TAB PO SCH (21:00)
[2023-04-13 23:47] VITALS: O2SAT 96
[2023-04-14 00:29] VITALS: BP 138/91; TEMP 99.6
--- NOTE | 2023-04-14 02:19 | P.PN ---
Subjective Date of Service: 04/14/23 Chief Complaint: Chest pain Physical Examination - Vital Signs Temperature: 99.6 F Blood Pressure: 138/91 Pulse: 107 Respirations: 18 Pulse Ox (%): 96 - Studies Laboratory Data (last 24 hrs) 04/13/23 04/13/23 10:02 10:02 WBC 8.80 Hgb 16.0 Hct 45.9 Plt Count 179 Sodium 135 L Potassium 4.2 BUN 9 Creatinine 1.06 Glucose 129 H Magnesium 2.0 Microbiology Data (last 24 hrs): 04/13/23 10:02 Nasopharnyx Influenza Type A Antigen Screen - Final 04/13/23 10:02 Nasopharnyx Influenza Type B Antigen Screen - Final Assessment And Plan - Plan Transfer was initiated patient was accepted to [facility] by Juan Tipton MD nurse telephone supervisor notified is working on the transfer at this time.
[2023-04-14 02:45] LABS: Absolute Lymphocytes (CBC) 1.4 K/uL (0.7-4.9); Lymphocytes % 16.2 % (15.3-44.8); MPV 9.1 fL (7.6-11.3); RBC Red Blood Cell Count 4.94 M/uL (4.33-5.43)
[2023-04-14 03:04] LABS: Potassium 3.8 mEq/L (3.5-5.1)
[2023-04-14] MEDS ORDERED: ASPIRIN EC 81 MG TAB PO SCH (09:00)
--- NOTE | 2023-04-15 13:15 | EKG ---
Test Date: 2023-04-13 Test Time: 16:38:06 [employer] Supervisor: DARRYN MEASUREMENT RESULTS: Intervals: Rate: 92 DE: 140 QRSD: 78 QT: 344 QTc: 425 [place]: P: 44 DE: 140 QRS: 41 T: 44 INTERPRETIVE STATEMENTS: Normal sinus rhythm with sinus arrhythmia Early repolarization Normal ECG No previous ECG available for comparison Electronically Signed On 04-15-23 13:12:17 CDT by Mandeep Duff
--- NOTE | 2023-04-15 13:17 | EKG ---
Test Date: 2023-04-13 Test Time: 09:58:15 Leather Belt Maker: SVEN MEASUREMENT RESULTS: Intervals: Rate: 105 TN: 128 QRSD: 80 QT: 320 QTc: 422 [place]: P: 46 TN: 128 QRS: 38 T: 44 INTERPRETIVE STATEMENTS: Sinus tachycardia Otherwise normal ECG No previous ECG available for comparison Electronically Signed On 04-15-23 13:12:56 CDT by Mandeep Duff
== END 2023-04-14 03:40 | disposition short-term general hospital (02) | DRG 282 ==
LOC: ER 09:41 → ERHOLD 15:19 → 2ND 19:32
PROVIDERS: ADMIT Internal Medicine; ATTEND Internal Medicine
DX: I21.4 Non-ST elevation (NSTEMI) myocardial infarction (principal); F17.210 Nicotine dependence, cigarettes, uncomplicated; R77.8 Other specified abnormalities of plasma proteins; Z20.822 Contact with and (suspected) exposure to COVID-19
CPT/HCPCS: 36415; 71045; 71275; 80048; 80061; 80307; 83735; 84484; 85025; 85379; 87040; 87635; 87804; 93005; 99285; Q9967

== ENCOUNTER 2024-09-26 21:19 | Emergency (ER) | payer OTHER, SELFPAY ==
--- NOTE | 2024-09-26 21:28 | EDPHYS ---
Physician Documentation [facility] Name: Vaughn Beal Age: 29 yrs Sex: Male : 1995 Arrival Date: 09/26/2024 Time: 21:19 Bed 6 Private MD: ED Physician Glynn Alfaro HPI: 09/26 22:22 This 29 yrs old Unknown Male presents to ER via Ambulatory with complaints of Facial kb Swelling. 22:22 Pt is a 29 year old male who presents for possible dental abscess. States he started kb having pain to right upper teeth yesterday then developed swelling to right cheek today. Denies fever, nausea, vomiting. Historical: - Allergies: 21:30 No Known Allergies; vc1 - Home Meds: 21:30 None [Active]; vc1 - PMHx: 21:30 None; vc1 - PSHx: 21:30 Femur - Left; vc1 - Immunization history:: Adult Immunizations up to date, Client reports having NOT received the Covid vaccine. Flu vaccine is not up to date. - Infectious Disease History:: Denies. Denies. - Social history:: Smoking status: Patient reports the use of cigarette tobacco products, smokes 1.5 packs per day, Smoking status: Patient denies any tobacco usage or history of. ROS: 21:36 Constitutional: As per HPI kb Exam: 21:36 Constitutional: This is a well developed, well nourished patient who is awake, alert, kb and in no acute distress. Head/Face: Normocephalic, atraumatic. ENT: Moist Mucous membranes Cardiovascular: Regular rate Respiratory: Respirations even and unlabored. No increased work of breathing. Talking in full sentences Skin: Warm, dry with normal turgor. Normal color. MS/ Extremity: Pulses equal, no cyanosis. Neurovascular intact. Full, normal range of motion. Neuro: Awake and alert, GCS 15, oriented to person, place, time, and situation. 21:36 ENT: Dental exam: dental caries, that is moderate, diffusely, gum swelling, that is mild, pain, that is mild, Vital Signs: 21:28 BP 174 / 109; Pulse 104; Resp 18; Temp 99.2; Pulse Ox 100% ; Weight 81.65 kg; Height 5 vc1 ft. 7 in. ; Pain 2/10; 21:28 Body Mass Index 28.19 (81.65 kg, 170.18 cm) vc1 21:28 Pain Scale: Adult vc1 MDM: 21:24 Medical Screening Exam initiated kb 21:40 Data reviewed: vital signs, nurses notes. kb 22:21 Differential diagnosis: dental caries, gingivitis, dental abscess, pericoronitis, kb aphthous ulcers. Test considered but Not performed: CT: ct considered but pt is nontoxic in appearance, afebrile. result would not change treatment plan. Counseling: I had a detailed discussion with the patient and/or guardian regarding the historical points, exam findings, and any diagnostic results supporting the discharge/admit diagnosis, the need for outpatient follow up, a family practitioner, to return to the emergency department if symptoms worsen or persist or if there are any questions or concerns that arise at home. Administered Medications: 21:37 Drug: Amoxicillin-Clavulanate PO 875 mg PO once Route: PO; cp4 21:37 Follow up: Response: No adverse reaction cp4 Disposition Summary: 09/26/24 21:28 Discharge Ordered Notes: Location: Home kb Condition: Stable kb Diagnosis - Periapical abscess without sinus kb Followup: kb - With: Emergency Department - When: As needed - Reason: Worsening of condition Followup: kb - With: Private Physician - When: 2 - 3 days - Reason: Recheck today's complaints, Continuance of care, Re-evaluation by your physician Discharge Instructions: - Discharge Summary Sheet kb - Dental Pain, [id number] kb - Dental Abscess, [id number] kb Forms: - Medication Reconciliation Form kb - Antibiotic Education kb - Prescription Opioid Use kb - Patient Portal Instructions kb - Leadership Thank You Letter kb Prescriptions: - Augmentin 875-125 mg Oral Tablet - take 1 tablet ORAL route every 12 hours for 10 days; 20 tablet; Refills: 0, kb Product Selection Permitted Addendum: 09/27/2024 23:18 I was immediately available for consultation during this patient's visit. I did not e c2 personally see the patient or discuss the patient with the BRITNI. . Signatures: Jaelyn Petersen FNP-C FNP-Ckb Calcote, Vanessa, RN RN vc1 Glynn Alfaro MD MD 2 Jackie Fernández cp4 Corrections: (The following items were deleted from the chart) 09/26 22:22 22:21 Test considered but Not performed: CT: ct considered but pt is nontoxic in kb appearance, afebrile. kb
[2024-09-26] MEDS ORDERED: AMOX/K CLAV 875 MG TAB ONE (21:34)
--- NOTE | 2024-09-26 21:38 | ER ---
Nurse's Notes [facility] Name: Vaughn Beal Age: 29 yrs Sex: Male : 1995 Arrival Date: 09/26/2024 Time: 21:19 Bed 6 Private MD: Diagnosis: Periapical abscess without sinus Presentation: 09/26 21:28 Chief complaint: Patient states: pain started yesterday in teeth and today right side vc1 of face started swelling. Coronavirus screen: Client denies travel out of the [place] in the last 14 days. At this time, the client does not indicate any symptoms associated with coronavirus-19. Ebola Screen: Patient negative for fever greater than or equal to 101.5 degrees Fahrenheit, and additional compatible Ebola Virus Disease symptoms Patient denies exposure to infectious person. Patient denies travel to an Ebola-affected area in the 21 days before illness onset. No symptoms or risks identified at this time. Initial Sepsis Screen: Does the patient meet any 2 criteria? No. Patient's initial sepsis screen is negative. Does the patient have a suspected source of infection? No. Patient's initial sepsis screen is negative. Risk Assessment: Do you want to hurt yourself or someone else? Patient reports no desire to harm self or others. Onset of symptoms was September 25, 2024. 21:28 Method Of Arrival: Ambulatory vc1 21:28 Acuity: CARLENE 4 vc1 Triage Assessment: 21:31 General: Appears in no apparent distress. uncomfortable, Behavior is calm, cooperative, vc1 appropriate for age. Pain: Complains of pain in upper right second bicuspid and upper right first bicuspid Pain does not radiate. Pain currently is 2 out of 10 on a pain scale. EENT: Reports pain in right cheek. Neuro: Level of Consciousness is awake, alert, obeys commands, Oriented to person, place, time, situation, Appropriate for age. Cardiovascular: Capillary refill < 3 seconds Patient's skin is warm and dry. Respiratory: Airway is patent Respiratory effort is even, unlabored, Respiratory pattern is regular, symmetrical. GI: No deficits noted. No signs and/or symptoms were reported involving the gastrointestinal system. : No deficits noted. No signs and/or symptoms were reported regarding the genitourinary system. Derm: Skin is intact, is healthy with good turgor, Skin is dry, Skin is normal, Skin temperature is warm. Musculoskeletal: Circulation, motion, and sensation intact. Range of motion: intact in all extremities. Historical: - Allergies: 21:30 No Known Allergies; vc1 - Home Meds: 21:30 None [Active]; vc1 - PMHx: 21:30 None; vc1 - PSHx: 21:30 Femur - Left; vc1 - Immunization history:: Adult Immunizations up to date, Client reports having NOT received the Covid vaccine. Flu vaccine is not up to date. - Infectious Disease History:: Denies. Denies. - Social history:: Smoking status: Patient reports the use of cigarette tobacco products, smokes 1.5 packs per day, Smoking status: Patient denies any tobacco usage or history of. Screenin:29 [facility] ED Fall Risk Assessment (Adult) History of falling in the last 3 months, cp4 including since admission No falls in past 3 months (0 pts) Confusion or Disorientation No (0 pts) Intoxicated or Sedated No (0 pts) Impaired Gait No (0 pts) Mobility Assist Device Used No (0 pt) Altered Elimination No (0 pt) Score/Fall Risk Level 0 - 2 = Low Risk Oriented to surroundings, Maintained a safe environment, Assessed \T\ reinforced patient's understanding of fall precautions, Hourly rounding (assess needs \T\ fall precautionary measures) done. Abuse screen: Denies threats or abuse. Denies injuries from another. Nutritional screening: No deficits noted. Tuberculosis screening: No symptoms or risk factors identified. Assessment: 21:29 General: Appears in no apparent distress. comfortable, Behavior is calm, cooperative, cp4 appropriate for age. Pain: Denies pain. Neuro: Level of Consciousness is awake, alert, obeys commands, Oriented to person, place, time, situation. Cardiovascular: Patient's skin is warm and dry. Respiratory: Airway is patent Respiratory effort is even, unlabored. GI: No signs and/or symptoms were reported involving the gastrointestinal system. : No signs and/or symptoms were reported regarding the genitourinary system. EENT: Reports facial swelling. Derm: No signs and/or symptoms reported regarding the dermatologic system. Musculoskeletal: No signs and/or symptoms reported regarding the musculoskeletal system. Vital Signs: 21:28 BP 174 / 109; Pulse 104; Resp 18; Temp 99.2; Pulse Ox 100% ; Weight 81.65 kg; Height 5 vc1 ft. 7 in. ; Pain 2/10; 21:28 Body Mass Index 28.19 (81.65 kg, 170.18 cm) vc1 21:28 Pain Scale: Adult vc1 ED Course: 21:22 Patient arrived in ED. [id number] 21:23 [facility]C [facility] ec2 21:23 Glynn Alfaro MD is Attending Physician. ec2 21:29 Jackie Fernández is Primary Nurse. cp4 21:29 Bed in low position. Call light in reach. Side rails up X 1. cp4 21:29 No provider procedures requiring assistance completed. Patient did not have IV access cp4 during this emergency room visit. 21:30 Triage completed. vc1 21:31 Arm band placed on right wrist. vc1 21:37 Provided Education on: dental abscess. cp4 Administered Medications: 21:37 Drug: Amoxicillin-Clavulanate PO 875 mg PO once Route: PO; cp4 21:37 Follow up: Response: No adverse reaction cp4 Medication: 21:29 VIS not applicable for this client. cp4 Outcome: 21:28 Discharge ordered by . kb 21:37 Discharged to home ambulatory, cp4 21:37 Condition: stable 21:37 Discharge instructions given to patient, Instructed on discharge instructions, follow up and referral plans. medication usage, Demonstrated understanding of instructions, follow-up care, medications, Prescriptions given X 1, 21:37 Patient left the ED. cp4 Signatures: Jaelyn Petersen FNP-C FNP-Ckb Jeffries, Jennifer j6 Nicci Best, RN RN vc1 Glynn Alfaro MD MD ec2 Jackie Fernández cp4
[2024-09-26 22:02] VITALS: BP 174/109; TEMP 99.2; O2SAT 100
== END 2024-09-26 21:37 | disposition home or self-care (01) ==
LOC: ER 21:19
DX: K04.7 Periapical abscess without sinus (principal); F17.210 Nicotine dependence, cigarettes, uncomplicated; Z28.310 Unvaccinated for COVID-19
CPT/HCPCS: 99283